=== PATIENT | male | born 2000 | race Caucasian/White ===

== ENCOUNTER 2022-07-16 14:55 | Inpatient (IN) ==
[2022-07-16] MEDS ORDERED: cefTRIAXone SODIUM 2,000 MG/70 ML BAG IV STA (15:15)
--- NOTE | 2022-07-16 15:15 | Emergency Department Note ---
Impression & Plan Preseptal cellulitis of right eye, Influenza A, Sinusitis ED Provider Note NAME: EVERARDO GUTIERREZ AGE: 21 SEX: M : 2000 ARRIVES VIA: Walk-In INFORMANT: Patient ED PROVIDER(S): Papo Mendiola DO CHIEF COMPLAINT: Facial swelling HPI: Patient is a 21-year-old male who presents the ER for upper respiratory symptoms which include congestion and mild cough that started about 5 days ago. Last he started noticing swelling of his forehead and over the past 24 hours and it tracked down to his eye which has become red and swollen. Denies any chest pain, shortness of breath, nausea, vomiting, or diarrhea. No dysuria, urgency, or frequency. No other exacerbating or remitting factors. ROS: See above HPI for pertinent positives & negatives. A total of 10 systems reviewed and were otherwise negative. PAST MEDICAL HISTORY:See Below PAST SURGICAL HISTORY:See Below FAMILY HISTORY:See Below SOCIAL HISTORY:See Below HOME MEDICATIONS:See Below ALLERGIES:See Below VITALS:See Below PHYSICAL EXAMINATION: GENERAL: Sitting up in bed, alert, well appearing, well nourished, no distress, non-toxic EYE EXAM: normal conjunctiva. PERRL and EOM's grossly intact. HEAD: Swelling the frontal region of the head tracking down over the bridge of the nose and over the right orbit with erythema. Tender to palpation. OROPHARYNX: no exudate, no erythema, lips, buccal mucosa, and tongue normal and mucous membranes are moist NECK: supple, no nuchal rigidity, no adenopathy, non-tender LUNGS: Clear to auscultation. Normal chest wall mechanics HEART: no murmurs, S1 normal and S2 normal ABDOMEN: abdomen soft, non-tender, normo-active bowel sounds, no masses, no kishor ound or guarding. UPPER EXTREMITIES: upper extremities are grossly normal. LOWER EXTREMITIES: No pitting edema. NEURO EXAM: Normal sensorium, cranial nerves II-XII grossly intact, normal speech, no gross weakness of arms, no gross weakness of legs. MEDICAL DECISION MAKING: Patient is a 21-year-old male who presents the ER referred in by Dr. Hurst from urgent care for swelling of the forehead and above the right eye. IV was established blood work was obtained. Labs showed no significant leukocytosis or anemia. BMP along LFTs bilirubin was unremarkable. Influenza a positive. CT of the face shows moderate sinusitis as well as a preseptal cellulitis. He was given IV Rocephin. He was updated bedside. He had no double vision. He is otherwise neurologically intact and discussed with Dr. Andrey Chavez for further evaluation and IV antibiotic treatment. Triage Nursing notes reviewed. Limited review of prior medical records performed Vital Signs: reviewed and remarkable for HTN Differential diagnosis: Cellulitis, abscess, MRSA infection, DVT, necrotizing fasciitis, dermatitis, drug eruption, allergic reaction, as well as other pathologies. ER treatment provided: See below Diagnostics interpreted by me: ECG: none Cardiac Monitoring: An order was placed for continuous cardiac monitoring. The monitor shows a rate of 90 with sinus rhythm. Laboratory studies: As stated above and show below. Imaging studies: CT of the face as described above Consultation(s): Discussed with hospitalist as described above Procedures: none Critical Care: None Past Med/Surg History Medical History (Updated 07/16/22 @ 20:33 by Papo Mendiola DO) Medical history non-contributory Surgical History (Updated 07/16/22 @ 17:11 by Alejandra Bañuelos PA-C) No significant past surgical history Family History (Updated 07/16/22 @ 17:10 by Alejandra Bañuelos PA-C) Denies family history of COPD (chronic obstructive pulmonary disease) Asthma Social History Smoking Status: Smoker, status unknown Preferred Language: Gambian Feels Safe at Home: Yes Allergies Allergies Allergy/AdvReac Type Severity Reaction Status Date / Time No Known Allergies Allergy Verified 07/16/22 17:04 Home Meds Home Medications Medication Instructions Recorded Confirmed ibuprofen 200 mg tablet (Advil) 400 mg PO DIRECTED PRN 07/16/22 07/16/22 PAIN/FEVER Results & Data (ED) Vital Signs Vital Signs - 24 hr 07/16/22 15:04 Temperature 36.4 C L Temperature Source Temporal Artery Scan Pulse Rate 88 Pulse Rhythm Regular Respiratory Rate 18 Respiratory Effort / Characteristics Non-Labored Spontaneous Respiratory Depth Normal Respiratory Pattern Regular Blood Pressure 143/80 H Blood Pressure Mean 101 Pulse Oximetry 99 Oxygen Delivery Method Room Air Sepsis Recent Fever Within 48 Hours No Sepsis New/Unexplained Change in Mental Status N/A Sepsis Action Taken by Nursing No Action Required Laboratory Data Result diagrams: 07/16/22 15:16 07/16/22 15:16 Lab Results 07/16/22 07/16/22 07/16/22 Range/Units 15:16 15:16 15:18 WBC 9.82 (4.8-10.8) K/ul RBC 4.95 (4.63-6.08) M/uL Hgb 14.3 (14.0-18.0) g/dl Hct 42.0 (40.1-51.0) % MCV 84.8 (80.0-100.0) fL MCH 28.9 (25.0-34.0) pg MCHC 34.0 (32.0-36.0) g/dL RDW Std Deviation 41.7 (36.4-46.3) fL RDW Coeff of Isaac 13.5 (11.5-14.5) % Plt Count 195 (130-400) K/uL MPV 9.8 (9.4-12.4) fL Immature Gran % (Auto) 0.7 % Neut % (Auto) 75.9 % Lymph % (Auto) 9.9 % [place] % (Auto) 13.1 % Eos % (Auto) 0.2 % Baso % (Auto) 0.2 % Neut # (Auto) 7.45 H (1.4-6.5) K/uL Lymph # (Auto) 0.97 L (1.2-3.4) K/uL [place] # (Auto) 1.29 H (0.24-0.82) K/uL Eos # (Auto) 0.02 (0-0.50) K/uL Baso # (Auto) 0.02 (0-0.2) K/uL Immature Gran # (Auto) 0.07 H (0.00-0.02) K/uL Sodium 135 L (136-145) mmol/L Potassium 4.1 (3.5-5.1) mmol/L Chloride 99 (98-107) mmol/L Carbon Dioxide 26 (21-32) mmol/L Anion Gap 10 (3-11) BUN 10 (6-23) mg/dl Creatinine 0.94 (0.6-1.4) mg/dl Est Cr Clr Drug Dosing 117.8 ml/min Est GFR ( Amer) 135.7 ml/min Est GFR (Non-Af Amer) 117.1 ml/min BUN/Creatinine Ratio 10.6 (10-20) Glucose 101 H (70-99(Fasting)) mg/dl Calcium 9.9 (8.5-10.1) mg/dl Total Bilirubin 0.7 (0.2-1.0) mg/dl AST 10 L (13-39) U/L ALT 12 (7-52) U/L Alkaline Phosphatase 69 (34-104) U/L Total Protein 8.3 (6.0-8.3) gm/dl Albumin 4.3 (3.4-5.0) gm/dl Globulin 4.0 (2.5-4.0) gm/dl Albumin/Globulin Ratio 1.1 (0.9-2) SARS-CoV-2 (PCR) NEGATIVE (Negative) Influenza Type A (PCR) Positive A* (Neg) Influenza Type B (PCR) Negative (Neg) RSV (RT-PCR) Negative (Neg) Administered Medications Acetaminophen (Acetaminophen 325 Mg Tab) 650 mg PO Q4H PRN PRN Reason: Pain or Fever Stop: 08/15/22 19:59 Last Admin: 07/16/22 20:29 Dose: 650 mg Documented By: CHRIS Ampicillin Sodium/Sulbactam Sodium 3,000 mg/ Sodium Chloride 108 mls @ 200 mls/hr IV Q6H [facility]; Protocol Stop: 07/23/22 19:59 Last Admin: 07/16/22 20:24 Dose: 200 mls/hr Documented By: CHRIS Discontinued Medications Ceftriaxone Sodium (Rocephin) 2,000 mg in 70 mls @ 140 mls/hr IV NOW STA Stop: 07/16/22 15:44 Last Infusion: 07/16/22 18:24 Dose: 0 mls/hr Documented By: Admin: 07/16/22 15:55 Dose: 140 mls/hr Documented By: PABLITO Ioversol (Optiray 350 100ml) 86 ml IV ONCE ONE Stop: 07/16/22 15:26 Last Admin: 07/16/22 15:26 Dose: 86 ml Documented By: NAWAF Imaging Data Radiologist's Impression: Face CT 07/16/22 15:13 CT facial bones w con HISTORY: 21 years-old Male Forehead swelling with swelling of of the right ey acute facial pain with soft tissue swelling. COMPARISON: None TECHNIQUE: Multiple axial CT images of the maxillofacial bones were obtained following the intravenous administration of 86 mL Optiray 350. A dose lowering technique was used consistent with the principals of KAR. FINDINGS: The imaged intracranial structures demonstrate no acute abnormality. The globes and orbits are within normal limits. There is moderate subcutaneous edema of the forehead and right supraorbital tissues extending into the nasal soft tissues. No discrete abscess identified. Unerupted right third maxillary and mandibular molars. Mastoid air cells and middle ear cavities are clear. Mild to moderate mucosal thickening of the frontal sinuses, most pronounced inferiorly with partially opacified frontoet hmoidal recesses. Moderate mucosal thickening of the ethmoid air cells with mild mucosal thickening of the sphenoid sinuses. Partially opacified sphenoethmoidal recesses. Moderate to severe right with moderate left maxillary sinus mucosal thickening. The previously described unerupted right maxillary third molar extends into the floor of the adjacent maxillary sinus. Nasopharyngeal secretions are noted. There is opacification of the right greater than left maxillary ostiomeatal units. Left aicha bullosa. No definite cortical erosions identified. IMPRESSION: 1. Paranasal sinus disease as above, moderate to severe within the right maxillary sinus with partial opacification of the nasal turbinates. 2. Opacified and partially opacified sinus outflow tracts. 3. Subcutaneous edema of the forehead and right supraorbital tissues suggestive of cellulitis. No abscess identified. ACT 112: Negative or not required by law. The above report was generated using voice recognition software. It may contain grammatical, syntax or spelling errors. Electronically signed by: Rivera Reyez M.D. 07/16/2022 3:46 PM Discharge Plan Visit Data Chief Complaint: Sinus Congestion/Pressure Stated Complaint: SINUS PAIN, EYE SWOLLEN SHUT ED Provider: Papo Mendiola Discharge Problem: Preseptal cellulitis of right eye, Influenza A, Sinusitis Patient Disposition: Admitted As Inpatient Discharge Instructions Interventions: ED Discharge Assessment Last Done: 07/16/22 20:00
[2022-07-16] MEDS ORDERED: OPTIRAY 350 100ml IV ONE (15:25)
[2022-07-16 15:35] LABS: Basophils # (auto) 0.02 K/uL (0-0.2); Basophils % (auto) 0.2 %; Eosinophils # (auto) 0.02 K/uL (0-0.50); Eosinophils % (auto) 0.2 %; Hemoglobin 14.3 g/dl (14.0-18.0); Immature Granulocytes # (auto) 0.07 K/uL (0.00-0.02); Immature Granulocytes % (auto) 0.7 %; Lymphocytes # (auto) 0.97 K/uL (1.2-3.4); Lymphocytes % (auto) 9.9 %; Mean Corpuscular Hemoglobin 28.9 pg (25.0-34.0); Mean Corpuscular Volume 84.8 fL (80.0-100.0); Mean Platelet Volume 9.8 fL (9.4-12.4); Monocytes # (auto) 1.29 K/uL (0.24-0.82); Monocytes % (auto) 13.1 %; Neutrophils # (auto) 7.45 K/uL (1.4-6.5); Neutrophils % (auto) 75.9 %; Platelet Count 195 K/uL (130-400); RDW Coefficient of Variation 13.5 % (11.5-14.5); RDW Standard Deviation 41.7 fL (36.4-46.3); Red Blood Count 4.95 M/uL (4.63-6.08); White Blood Count 9.82 K/ul (4.8-10.8)
--- NOTE | 2022-07-16 15:48 | CT Scan Report ---
CT facial bones w con HISTORY: 21 years-old Male Forehead swelling with swelling of of the right ey acute facial pain with soft tissue swelling. COMPARISON: None TECHNIQUE: Multiple axial CT images of the maxillofacial bones were obtained following the intravenou s administration of 86 mL Optiray 350. A dose lowering technique was used consistent with the princip als of KAR. FINDINGS: The imaged intracranial structures demonstrate no acute abnormality. The globes and orbits are within normal limits. There is moderate subcutaneous edema of the forehead and right supraorbital tissues e xtending into the nasal soft tissues. No discrete abscess identified. Unerupted right third maxillary and mandibular molars. Mastoid air cells and middle ear cavities are clear. Mild to moderate mucosal thickening of the frontal sinuses, most pronounced inferiorly with pa rtially opacified frontoethmoidal recesses. Moderate mucosal thickening of the ethmoid air cells with mild mucosal thickening of the sphenoid sinuses. Partially opacified sphenoethmoidal recesses. Moder ate to severe right with moderate left maxillary sinus mucosal thickening. The previously described u nerupted right maxillary third molar extends into the floor of the adjacent maxillary sinus. Nasophar yngeal secretions are noted. There is opacification of the right greater than left maxillary ostiomea manuel units. Left aicha bullosa. No definite cortical erosions identified. IMPRESSION: 1. Paranasal sinus disease as above, moderate to severe within the right maxillary sinus with partial opacification of the nasal turbinates. 2. Opacified and partially opacified sinus outflow tracts. 3. Subcutaneous edema of the forehead and right supraorbital tissues suggestive of cellulitis. No abs cess identified. ACT 112: Negative or not required by law. The above report was generated using voice recognition software. It may contain grammatical, syntax o r spelling errors. Electronically signed by: Rivera Reyez M.D. 07/16/2022 3:46 PM
[2022-07-16 15:55] LABS: Albumin Globulin Ratio 1.1 (0.9-2); Albumin Level 4.3 gm/dl (3.4-5.0); BUN Creatinine Ratio 10.6 (10-20); Bilirubin,Total 0.7 mg/dl (0.2-1.0); Calcium 9.9 mg/dl (8.5-10.1); Creatinine Clr Calc Pharmacy 117.8 ml/min; Est GFR (African American) 135.7 ml/min; Est GFR (Non-African American) 117.1 ml/min; Potassium 4.1 mmol/L (3.5-5.1); Total Protein 8.3 gm/dl (6.0-8.3)
[2022-07-16 16:16] LABS: Influenza B virus by PCR Negative (Neg); RSV by PCR Negative (Neg); SARS CoV2 RNA(COVID-19) Ceph NEGATIVE (Negative)
[2022-07-16 16:21] LABS: Influenza A virus by PCR Positive (Neg)
--- NOTE | 2022-07-16 16:45 | History & Physical Report ---
Date of Service July 16, 2022 Assessment & Plan (1) Preseptal cellulitis of right eye: Plan: - Face CT: Paranasal sinus disease as above, moderate to severe within the right maxillary sinus with partial opacification of the nasal turbinates. Opacified and partially opacified sinus outflow tracts. Subcutaneous edema of the forehead and right supraorbital tissues suggestive of cellulitis. No abscess identified. - Normal white count but with left shift, positive for influenza A, with 5 days of symptoms likely be precipitating illness which led to cellulitis. - Given initial dose of Rocephin in the ED, will switch to Unasyn. - Supportive care for fever/pain. (2) Influenza A: Plan: - Positive in ED, he is 5 days out from symptom onset, otherwise healthy male without any underlying respiratory or cardiac disease, therefore will defer on initiating Tamiflu. - Isolation precautions ordered. - Supportive care: Tylenol/NSAIDs for fever, pain. Plan - Admit to [facility]. - SCDs encouraged, deferring chemoprophylaxis given age, mobility, overall health status. - Full code. History of Present Illness Chief Complaint: Right eye swelling x1 day Primary Care Provider: [facility] Ariel Suarez is a 21-year-old previously healthy male is presenting today with concerns for swollen eye. 5 days ago he noticed some sinus congestion, cough, mild body aches. He notes that several of his friends/roommates have had similar symptoms and he had been managing well enough with [id number] treatments. he initially noticed some swelling in his forehead but did not think much of it, and last evening notes he had some migration of the swelling down towards his right eye. This morning, he woke up with his right eye swollen shut and some mild-moderate pain of the eyelid due to the swelling. He has not had any pain with eye movements or blurred vision/double vision. No photophobia. Presentation, mildly hypertensive 143/80, otherwise vital signs within normal limits. Labs remarkable for normal white count with left shift, he is also found to be positive for influenza A. Negative for COVID/influenza B/RSV. Face CT: Paranasal sinus disease with moderate to severe is in the right maxillary sinus with partial desiccation of the nasal turbinates, subcutaneous edema of the forehead and right supraorbital tissue suggestive of early cellulitis without abscess identified. Allergies Allergy/AdvReac Type Severity Reaction Status Date / Time No Known Allergies Allergy Verified 07/16/22 17:04 Home Medications Medication Instructions Recorded Confirmed Type ibuprofen 200 mg tablet (Advil) 400 mg PO DIRECTED PRN 07/16/22 07/16/22 History PAIN/FEVER Past Med/Surg History Medical History (Updated 07/16/22 @ 20:33 by Papo Mendiola DO) Medical history non-contributory Surgical History (Updated 07/16/22 @ 17:11 by Alejandra Bañuelos PA-C) No significant past surgical history Family History (Updated 07/16/22 @ 17:10 by Alejandra Bañuelos PA-C) Denies family history of COPD (chronic obstructive pulmonary disease) Asthma Social History Smoking Status: Current some day smoker Hx Alcohol Use: Yes Alcohol type: beer and hard liquor Hx Substance Use: Yes Last Used Substance: Days (ago) Preferred Language: American Communication Ability: Effective Tooling Supervisor Required: No Beliefs That Will Affect Care: None Current Living Situation: Other Current Living Situation Comment: apartments with roommates Other Information That Helps Us Care for You: No Feels Safe at Home: Yes Safety Concerns: Feels Safe At This Time Assistive Devices: None Review of Systems Review of Systems: Constitutional: Fatigue and mild diffuse body aches over the past 5 days; no fever/chills, weakness, anorexia, night sweats Eyes: No diplopia, no worsening or blurred vision ENT: Sinus congestion x5 days normal hearing, no trouble swallowing Respiratory: Intermittent cough, sometimes productive of sputum, no dyspnea at rest or on exertion Cardiovascular: No chest pain, tightness or palpitations Abdomen: No pain, nausea, vomiting, diarrhea or constipation : Denies dysuria, hematuria, increased urgency/frequency, urinary retention Musculoskeletal: No joint pain, calf pain, swelling Neurologic: No weakness, numbness/tingling, or balance problems Psychiatric: No anxiety or depression Skin: No rash or itch Physical Exam Physical Exam: General: awake, alert, no apparent distress Head: Right forehead swelling; otherwise normocephalic, atraumatic ENT: Diffuse right orbital swelling extending down from forehead and across to nasal bridge, does not cross midline; PERRL, EOMI, no pharyngeal exudate, mucous membranes moist Chest: Clear to auscultation, on room air, no adventitious breath sounds Cardiac: Regular rate and rhythm, no murmur, no JVD, normal peripheral pulses, good capillary refill Abdominal: NABS x 4 quadrants, soft, nontender to palpation, no rebound, guarding or tenderness Extremities: Normal inspection, no peripheral edema or erythema, calfs n ontender to palpation Psych: Normal mood and affect Neuro: AAO x 3, strength intact bilaterally and rated 5/5, no motor deficits, speech is clear, no peripheral sensory deficits Skin: no rash or erythema Results & Data Results & Data ([facility]) Vital Signs (Past 12 Hours) Vital Signs Temp Pulse Resp BP Pulse Ox O2 Del Method 07/16/22 15:04 36.4 C L 88 18 143/80 H 99 Room Air Laboratory Results Abnormal lab results 07/16/22 07/16/22 07/16/22 Range/Units 15:16 15:16 15:18 Neut # (Auto) 7.45 H (1.4-6.5) K/uL Lymph # (Auto) 0.97 L (1.2-3.4) K/uL [place] # (Auto) 1.29 H (0.24-0.82) K/uL Immature Gran # (Auto) 0.07 H (0.00-0.02) K/uL Sodium 135 L (136-145) mmol/L Glucose 101 H (70-99(Fasting)) mg/dl AST 10 L (13-39) U/L Influenza Type A (PCR) Positive A* (Neg) Diagnostic Findings Face CT 07/16/22 15:13 CT facial bones w con HISTORY: 21 years-old Male Forehead swelling with swelling of of the right ey acute facial pain with soft tissue swelling. COMPARISON: None TECHNIQUE: Multiple axial CT images of the maxillofacial bones were obtained following the intravenous administration of 86 mL Optiray 350. A dose lowering technique was used consistent with the principals of PATRICIARA. FINDINGS: The imaged intracranial structures demonstrate no acute abnormality. The globes and orbits are within normal limits. There is moderate subcutaneous edema of the forehead and right supraorbital tissues extending into the nasal soft tissues. No discrete abscess identified. Unerupted right third maxillary and mandibular molars. Mastoid air cells and middle ear cavities are clear. Mild to moderate mucosal thickening of the frontal sinuses, most pronounced inferiorly with partially opacified frontoethmoidal recesses. Moderate mucosal thickening of the ethmoid air cells with mild mucosal thickening of the sphenoid sinuses. Partially opacified sphenoethmoidal recesses. Moderate to severe right with moderate left maxillary sinus mucosal thickening. The previously described unerupted right maxillary third molar extends into the floor of the adjacent maxillary sinus. Nasopharyngeal secretions are noted. There is opacification of the right greater than left maxillary ostiomeatal units. Left aicha bullosa. No definite cortical erosions identified. IMPRESSION: 1. Paranasal sinus disease as above, moderate to severe within the right maxillary sinus with partial opacification of the nasal turbinates. 2. Opacified and partially opacified sinus outflow tracts. 3. Subcutaneous edema of the forehead and right supraorbital tissues suggestive of cellulitis. No abscess identified. ACT 112: Negative or not required by law. The above report was generated using voice recognition software. It may contain grammatical, syntax or spelling errors. Electronically signed by: Rivera Reyez M.D. 07/16/2022 3:46 PM Code Status & VTE Plan Code Status Full code. Supervising Physician Co-Signing Physician Notes I personally saw and examined the patient. I verified all guerrero points and agree with Alejandra Bañuelos PA-C with the following exceptions and/or additions: 21 year old male admission with concerns for swollen eye. Difficulty opening eye. Initial symptoms started 5 days ago with sinus congestion. O/E No diplopia or pain with eye movement, HS1+2, no murmurs, Chest CTAB, Abo SNT A/P Preseptal cellulitis - switch antibiotics to Unasyn 3g q6h IV Influenza A - main symptoms are from cellulitis rather than influenza, > 48 hours of symptoms. No need for tamiflu. PG Care Time/CCT Total # of Minutes Spent Total Time Spent with Patient: Total time spent is greater than 50% in coordination of care (as documented) at patient's floor/unit and/or counseling patient: Coding Level of Care Code 27235 Initial Inpt Care Lvl 3 Diagnoses Preseptal cellulitis of right eye L03.213 Influenza A J10.1
[2022-07-16] MEDS: AMPICILLIN/SULBACTAM SOD 3,000 MG in 0.9 % SODIUM CHLORIDE 100 ML IV SCH (20:24)
[2022-07-16] MEDS: ACETAMINOPHEN 325 MG TAB PO PRN (20:29)
[2022-07-16] MEDS: LACTATED RINGER'S 1,000 ML IV SCH (20:55)
[2022-07-17] MEDS: ACETAMINOPHEN 325 MG TAB PO PRN ×4 (00:36→21:19)
[2022-07-17] MEDS: AMPICILLIN/SULBACTAM SOD 3,000 MG in 0.9 % SODIUM CHLORIDE 100 ML IV SCH ×4 (02:02→19:40)
[2022-07-17] MEDS: KETOROLAC TROMETHAMINE 15 MG/ML VIAL IV PRN ×2 (02:34→09:27)
[2022-07-17] MEDS: LACTATED RINGER'S 1,000 ML IV SCH (03:56)
[2022-07-17 06:03] LABS: Basophils # (auto) 0.01 K/uL (0-0.2); Basophils % (auto) 0.1 %; Eosinophils # (auto) 0.02 K/uL (0-0.50); Eosinophils % (auto) 0.2 %; Hematocrit (blood only) 36.1 % (40.1-51.0); Hemoglobin 12.4 g/dl (14.0-18.0); Immature Granulocytes # (auto) 0.15 K/uL (0.00-0.02); Immature Granulocytes % (auto) 1.6 %; Lymphocytes # (auto) 1.21 K/uL (1.2-3.4); Lymphocytes % (auto) 12.7 %; Mean Corpuscular Hemoglobin 29.2 pg (25.0-34.0); Mean Corpuscular Hgb Conc 34.3 g/dL (32.0-36.0); Mean Corpuscular Volume 85.1 fL (80.0-100.0); Mean Platelet Volume 10.2 fL (9.4-12.4); Monocytes # (auto) 1.43 K/uL (0.24-0.82); Monocytes % (auto) 15.1 %; Neutrophils # (auto) 6.68 K/uL (1.4-6.5); Neutrophils % (auto) 70.3 %; Platelet Count 202 K/uL (130-400); RDW Coefficient of Variation 13.6 % (11.5-14.5); RDW Standard Deviation 42.1 fL (36.4-46.3); Red Blood Count 4.24 M/uL (4.63-6.08)
[2022-07-17 06:26] LABS: BUN Creatinine Ratio 9.9 (10-20); Calcium 9.1 mg/dl (8.5-10.1); Creatinine Clr Calc Pharmacy 120.8 ml/min; Est GFR (African American) 141.1 ml/min; Est GFR (Non-African American) 121.7 ml/min; Magnesium 1.8 mg/dl (1.7-2.4); Potassium 4.3 mmol/L (3.5-5.1)
[2022-07-17] MEDS ORDERED: diphenhydrAMINE 50 MG/ML VIAL IV STA (12:23)
[2022-07-17] MEDS ORDERED: diphenhydrAMINE 50 MG/ML VIAL IV PRN (16:01)
[2022-07-17] MEDS: PSEUDOEPHEDRINE HCL 30 MG TAB PO PRN ×2 (16:58→23:05)
--- NOTE | 2022-07-17 18:35 | Hospitalist Progress Note ---
Date of Service July 17, 2022 Assessment & Plan (1) Preseptal cellulitis of right eye: Plan: Cellulitis erythema appears improving but significant angioedema No other symptoms of allergy, suspect angioedema from cellulitis Benadryl 25mg IV q6h PRN for swelling, if no improvement will start on steroids Sudafed for sinusitis Unasyn 3g IV q6h DUSTIN (2) Influenza A: Plan: > 48 hours of symptoms symptoms from cellulitis not influenza Plan VTE Prophylaxis - SCDs encouraged, deferring chemoprophylaxis given age, mobility, overall health status. Code - Full code Disposition - Admit to [facility] Admission and Anticipated Discharge Date Admission Date: July 16, 2022 Subjective No fever or chills. Swelling worse and no longer able to open his right eye even with when he tries to pull up his right eye lid. Some crusting of right eye. Review of Systems Review of Systems: All systems reviewed & are unremarkable except as noted in Subjective Physical Exam Constitutional: WD/WN, vitals as above Eyes: bilateral right > left angioedema with improved erythema, no pain on eye movements Respiratory: normal respiratory effort, lungs clear to auscultation Cardiovascular: RRR, no murmur, no edema Gastrointestinal (Abdomen): normal bowel sounds, soft, nontender, no hepatosplenomegaly Results & Data Results & Data ([facility]) Vital Signs (Past 12 Hours) Vital Signs Temp Pulse Resp BP Pulse Ox O2 Del Method 07/17/22 15:14 37.4 C 79 16 142/78 H 96 Room Air 07/17/22 07:31 36.8 C 70 16 133/77 95 Room Air PG Care Time/CCT Total # of Minutes Spent Total Time Spent with Patient: Total time spent is greater than 50% in coordination of care (as documented) at patient's floor/unit and/or counseling patient: Coding Level of Care Code 62274 Subseq Hosp Care Lvl 2 Diagnoses Preseptal cellulitis of right eye L03.213 Influenza A J10.1
[2022-07-17] MEDS ORDERED: MoRPHine SULFATE 2 MG/ML CARP IV STA (19:30)
[2022-07-17] MEDS ORDERED: dexAMETHasone 10 MG in SYRINGE 0 ML IV ONE (21:36)
[2022-07-18] MEDS: AMPICILLIN/SULBACTAM SOD 3,000 MG in 0.9 % SODIUM CHLORIDE 100 ML IV SCH ×4 (01:43→20:12)
[2022-07-18] MEDS: PSEUDOEPHEDRINE HCL 30 MG TAB PO PRN ×3 (05:14→20:56)
[2022-07-18 08:31] LABS: Basophils # (auto) 0.01 K/uL (0-0.2); Basophils % (auto) 0.1 %; Hematocrit (blood only) 37.8 % (40.1-51.0); Immature Granulocytes # (auto) 0.05 K/uL (0.00-0.02); Immature Granulocytes % (auto) 0.5 %; Lymphocytes # (auto) 0.73 K/uL (1.2-3.4); Lymphocytes % (auto) 7.7 %; Mean Corpuscular Hemoglobin 29.1 pg (25.0-34.0); Mean Corpuscular Hgb Conc 34.4 g/dL (32.0-36.0); Mean Corpuscular Volume 84.6 fL (80.0-100.0); Mean Platelet Volume 9.6 fL (9.4-12.4); Monocytes # (auto) 0.54 K/uL (0.24-0.82); Monocytes % (auto) 5.7 %; Platelet Count 259 K/uL (130-400); RDW Coefficient of Variation 13.3 % (11.5-14.5); RDW Standard Deviation 41.6 fL (36.4-46.3); Red Blood Count 4.47 M/uL (4.63-6.08); White Blood Count 9.43 K/ul (4.8-10.8)
[2022-07-18 08:52] LABS: Anion Gap 7 (3-11); BUN Creatinine Ratio 11.8 (10-20); Blood Urea Nitrogen 9 mg/dl (6-23); C Reactive Protein 20.13 mg/dl (0-0.5); Calcium 9.2 mg/dl (8.5-10.1); Carbon Dioxide 27 mmol/L (21-32); Chloride 100 mmol/L (98-107); Creatinine Clr Calc Pharmacy 144.6 ml/min; Est GFR (African American) > 150.0 ml/min; Est GFR (Non-African American) 132.3 ml/min; Glucose 127 mg/dl (70-99(Fasting)); Potassium 4.1 mmol/L (3.5-5.1); Sodium 134 mmol/L (136-145)
[2022-07-18] MEDS ORDERED: VANCOMYCIN HCL 1,250 MG in SODIUM CHLORIDE 0.9% 500 ML IV ONE (11:25)
[2022-07-18] MEDS ORDERED: VANCOMYCIN CONSULT ACTIVE PRN (11:25)
--- NOTE | 2022-07-18 11:34 | Hospitalist Progress Note ---
Date of Service July 18, 2022 Assessment & Plan (1) Preseptal cellulitis of right eye: Plan: Continue Unasyn 3g IV q6h DUSTIN Concerning worsening erythema although it may be just irritation from eye discharge will broaden antibiotics to cover for MRSA with vancomycin as he has not had expected improvement with Unasyn after 48 hours. Dexamethasone started yesterday helpful for swelling. Will continue q6h 6mg dexamethasone and switch to short course of prednisone on discharge. Continue Sudafed for sinusitis Switch Benadryl to 25mg IV q6h DUSTIN (2) Influenza A: Plan: > 48 hours of symptoms symptoms from cellulitis not influenza Plan VTE Prophylaxis - SCDs encouraged, deferring chemoprophylaxis given age, mobility, overall health status. Code - Full code Disposition - Admit to [facility] Admission and Anticipated Discharge Date Admission Date: July 16, 2022 Subjective No fever or chills. Swelling improved but concerning increased in erythema surrounding his right eye from his ear to nose. Able to open his left eye better. Still unable to open right eye. Review of Systems Review of Systems: All systems reviewed & are unremarkable except as noted in Subjective Physical Exam Constitutional: WD/WN, vitals as above Respiratory: normal respiratory effort, lungs clear to auscultation Cardiovascular: RRR, no murmur, no edema Gastrointestinal (Abdomen): normal bowel sounds, soft, nontender, no hepatosplenomegaly Skin: Swelling around both eyes improved but bright erythema from ear to nasolabial fold appears worse. Results & Data Results & Data ([facility]) Vital Signs (Past 12 Hours) Vital Signs Temp Pulse Resp BP Pulse Ox O2 Del Method 07/18/22 07:20 36.8 C 80 14 133/74 94 Room Air PG Care Time/CCT Total # of Minutes Spent Total Time Spent with Patient: Total time spent is greater than 50% in coordination of care (as documented) at patient's floor/unit and/or counseling patient: Coding Level of Care Code 52351 Subseq Hosp Care Lvl 2 Diagnoses Preseptal cellulitis of right eye L03.213 Influenza A J10.1
[2022-07-18] MEDS ORDERED: VANCOMYCIN HCL 1,500 MG in SODIUM CHLORIDE 0.9% 500 ML IV STA (11:35)
[2022-07-18] MEDS: diphenhydrAMINE 50 MG/ML VIAL IV SCH ×2 (12:57→18:42)
[2022-07-18] MEDS: dexAMETHasone 6 MG in SYRINGE 0 ML IV SCH ×2 (13:40→18:42)
[2022-07-18] MEDS: VANCOMYCIN HCL 1,250 MG in SODIUM CHLORIDE 0.9% 250 ML IV SCH (20:11)
[2022-07-19] MEDS: dexAMETHasone 6 MG in SYRINGE 0 ML IV SCH ×2 (00:18→06:27)
[2022-07-19] MEDS: diphenhydrAMINE 50 MG/ML VIAL IV SCH ×3 (00:18→11:47)
[2022-07-19] MEDS: AMPICILLIN/SULBACTAM SOD 3,000 MG in 0.9 % SODIUM CHLORIDE 100 ML IV SCH ×3 (02:27→13:20)
[2022-07-19 07:04] LABS: Creatinine Clr Calc Pharmacy 144.6 ml/min; Est GFR (African American) > 150.0 ml/min; Est GFR (Non-African American) 132.3 ml/min
[2022-07-19] MEDS: VANCOMYCIN HCL 1,250 MG in SODIUM CHLORIDE 0.9% 250 ML IV SCH (08:18)
[2022-07-19] MEDS ORDERED: SULFAMETHOXAZOLE/TRIMETHOPRIM DS 800/160MG TAB PO ONE (09:25)
[2022-07-19] MEDS ORDERED: predniSONE 20 MG TAB PO STA (11:03)
--- NOTE | 2022-07-19 11:27 | Discharge Summary ---
Date of Service July 19, 2022 Admission HPI Per Admitting Provider Ariel Suarez is a 21-year-old previously healthy male is presenting today with concerns for swollen eye. 5 days ago he noticed some sinus congestion, cough, mild body aches. He notes that several of his friends/roommates have had similar symptoms and he had been managing well enough with [id number] treatments. he initially noticed some swelling in his forehead but did not think much of it, and last evening notes he had some migration of the swelling down towards his right eye. This morning, he woke up with his right eye swollen shut and some mild-moderate pain of the eyelid due to the swelling. He has not had any pain with eye movements or blurred vision/double vision. No photophobia. Presentation, mildly hypertensive 143/80, otherwise vital signs within normal limits. Labs remarkable for normal white count with left shift, he is also found to be positive for influenza A. Negative for COVID/influenza B/RSV. Face CT: Paranasal sinus disease with moderate to severe is in the right maxillary sinus with partial desiccation of the nasal turbinates, subcutaneous edema of the forehead and right supraorbital tissue suggestive of early cellulitis without abscess identified. Discharge Data Allergies Allergy/AdvReac Type Severity Reaction Status Date / Time No Known Allergies Allergy Verified 07/16/22 17:04 Consultations 07/16/22 16:37 ED Decision to Admit Stat Ordered Studies 07/16/22 15:13 CT face [CT facial bones w con] Stat Hospital Course (1) Preseptal cellulitis of right eye: Continue Unasyn 3g IV q6h DUSTIN Concerning worsening erythema although it may be just irritation from eye discharge will broaden antibiotics to cover for MRSA with vancomycin as he has not had expected improvement with Unasyn after 48 hours. Dexamethasone started yesterday helpful for swelling. Will continue q6h 6mg dexamethasone and switch to short course of prednisone on discharge. Continue Sudafed for sinusitis Switch Benadryl to 25mg IV q6h DUSTIN (2) Influenza A: > 48 hours of symptoms symptoms from cellulitis not influenza Plan VTE Prophylaxis - SCDs encouraged, deferring chemoprophylaxis given age, mobility, overall health status. Code - Full code Disposition - Admit to [facility] Discharge Plan Discharge Items Patient Disposition: Home - Self-Care Reason For Visit: SINUS PAIN, EYE SWOLLEN SHUT Discharge Diagnosis: Preseptal cellulitis Influenza A Activity: Resume your previous activity Non-emergency contact: Primary Care Provider Call non-emergency contact if: you have any medication questions and your symptoms worsen Follow-up/Referrals: [facility] [Primary Care Provider] - Diet: Regular Addtl Attending Provider Instructions: You were admitted to [facility] from July 16 to 2021 due to influenza, acute bacterial sinusitis and preseptal cellulitis and angioedema. You were treated initially with intravenous Unasyn which was broadened for MRSA coverage with vancomycin due to failure to significantly improve over 48 hours although suspicion for MRSA is less likely than alternative organisms. Please continue on Augmentin and Bactrim as prescribed. If you have continued erythema and swelling at the end of this course, please follow up with your primary care provider as you may need a prolonged course. Swelling (angioedema) improved with steroids and Benadryl. Recommend continuing steroids with a tapering dose of prednisone as prescribed (40mg daily for 2 days; then 30mg daily for 2 days; then 20mg daily for 2 days; then 10mg daily for 2 days; then stop). Please also take Benadryl as needed for your eye swelling (this is over the counter) - recommend you do not drive if you are taking this medication. Recommend not driving until you are able to see clearly out of both your eyes. Use Sudafed as needed for nasal congestion however recommend limiting use of this to only a further three days. Pending Studies at Discharge: No Stand-Alone Forms: [facility], Work/School Release, Smoking Cessation Medications and DC Order Prescriptions: New amoxicillin-pot clavulanate 875-125 mg tablet 1 tab PO BID 8 Days Qty: 16 0RF sulfamethoxazole-trimethoprim [Bactrim DS] 800-160 mg tablet 1 tab PO BID 8 Days Qty: 16 0RF prednisone 10 mg tablet See Rx Instructions .ROUTE .COMPLEX Qty: 20 0RF Rx Instructions: take 40mg PO daily for 2 days, then 30mg PO daily for 2 days, then 20mg PO daily for 2 days, then 10mg PO daily for 2 days pseudoephedrine HCl [Sudafed] 30 mg tablet 30 mg PO Q6H PRN (Reason: nasal congestion) 3 Days Qty: 7 0RF diphenhydramine HCl 25 mg tablet 25 mg PO Q6H PRN (Reason: swelling) Qty: 20 0RF Discontinued ibuprofen [Advil] 200 mg Tablet 400 mg PO DIRECTED PRN (Reason: PAIN/FEVER) Discharge Orders: Discharge Order (Routine); Ordered 07/19/22 Ordered By: Andrey Chavez Admission Data Admit Date/Time: 07/16/22 16:48 Attending Provider: Andrey Chavez Admit Provider: Andrey Chavez Primary Care Provider: [facility] Other Providers: Andrey Chavez Coding Diagnoses Preseptal cellulitis of right eye L03.213 Influenza A J10.1
== END 2022-07-19 14:05 | disposition home or self-care (01) | DRG 866 ==
LOC: ED 14:55 → EDINP 16:48 → 3E 23:49